=== PATIENT | male | born 1970 | race Caucasian/White ===

== ENCOUNTER 2017-10-01 15:33 | Outpatient (CLI) | payer OTHER ==
--- NOTE | 2017-10-01 17:25 | MRI ---
MRI OF LEFT KNEE PERFORMED WITHOUT CONTRAST ENHANCEMENT: History: Complaining of left knee pain since April. No known history of trauma. FINDINGS: The anterior as well as posterior cruciate ligaments are intact. The medial and lateral menisci are normal in shape and appearance. Medial as well as lateral collateral ligament and iliotibial band regions appear unremarkable. The patellar articular cartilage is intact. There is a new full thickness articular cartilage defect involving the more inferior aspect of the trochlear grove laterally. There is some fairly prominent s ubchondral marrow edema change and some altered signal change directly beneath the subchondral bony p late suggesting an insufficiency type fracture. There is some minimal patellar tendinosis incidentall y noted. IMPRESSION: 1. Moderate marrow edema changes and near full thickness articular cartilage defect measuring 5-6 mm in size involving the more inferior margin of the lateral side of the trochlear grove. Changes in the subchondral bony plate would suggest underlying insufficiency fracture in this region. 2. Minimal patellar tendinosis. POS: OFF
== END 2017-10-01 15:34 | disposition home or self-care (01) ==
LOC: TBSIIMAG 15:33
PROVIDERS: ATTEND Family Medicine
DX: M25.562 Pain in left knee (principal); R60.0 Localized edema; M76.52 Patellar tendinitis, left knee

== ENCOUNTER 2018-08-09 08:19 | Outpatient (CLI) | payer OTHER ==
--- NOTE | 2018-08-09 10:01 | RAD ---
CERVICAL SPINE SERIES WITH FLEXION AND EXTENSION AND OBLIQUE VIEWS A TOTAL OF 7 IMAGES: HISTORY: Chronic pain. FINDINGS: The vertebral bodies are normal in height. There is moderate degenerative disk narrowing at C5-6. T here is also posterior osteophytic change at this level. There is also some mild bilateral foraminal narrowing greater on the right. I do not see any abnormal motion on flexion or extension. IMPRESSION: Moderate degenerative disk narrowing at the C5-6 level. POS: [facility]
== END 2018-08-09 08:20 | disposition home or self-care (01) ==
LOC: BICRAD 08:19
PROVIDERS: ATTEND Family Medicine
DX: M54.2 Cervicalgia (principal); M50.222 Other cervical disc displacement at C5-C6 level; Z12.5 Encounter for screening for malignant neoplasm of prostate; Z00.00 Encounter for general adult medical examination without abnormal findings; M10.9 Gout, unspecified
CPT/HCPCS: 36415; 72052; 80053; 80061; 82306; 84443; 84550; 85025; G0103

== ENCOUNTER 2018-09-11 07:42 | Outpatient (CLI) | payer OTHER ==
--- NOTE | 2018-09-11 10:21 | MRI ---
MRI CERVICAL SPINE WITHOUT CONTRAST: HISTORY: Cervical spine stenosis. COMPARISON: Radiographs from 08/09/2018. FINDINGS: The cerebellar tonsils terminate at the level of the foramen magnum. Cord signal is normal. The paraspinal musculature is normal. No cervical adenopathy. No marrow infiltrative process. Levels are as follows: C2-C3: Normal disk. No neural foramina or spinal canal narrowing. C3-C4: There is central and bilateral paracentral posterior disk protrusion with minimal effacement of the ventral CSF space. There is mild facet arthropathy. No neural foraminal narrowing. No spina l canal narrowing. C4-C5: Low grade uncinate process hypertrophy. No neural foraminal or spinal canal narrowing. Mild facet arthrosis. C5-C6: There is a broad-based posterior disk osteophyte complex. There is complete effacement of th e ventral CSF space, with the spinal canal measuring approximately 8 mm. Mild degenerative disk spac e height loss. Mild facet arthropathy. Moderate bilateral neural foraminal narrowing. Moderate unc inate process hypertrophy. C6-C7: Mild posterior degenerative disk space height loss with broad-based posterior disk osteophyte complex. Mild effacement of the ventral CSF space, with the spinal canal still measuring over a garrett timeter. Mild uncinate process hypertrophy. Mild bilateral neural foraminal narrowing. IMPRESSION: Mild to moderate spondylosis, as described, with complete effacement of the ventral cerebrospinal flu id space at C5-C6, due to a broad-based posterior disk osteophyte complex, with spinal canal narrowin g. POS: [facility]
== END 2018-09-11 07:43 | disposition home or self-care (01) ==
LOC: SCSMRI 07:42
PROVIDERS: ATTEND Orthopaedic Surgery Hand Surgery
DX: M47.22 Other spondylosis with radiculopathy, cervical region (principal); M48.02 Spinal stenosis, cervical region; M25.78 Osteophyte, vertebrae
CPT/HCPCS: 72141

== ENCOUNTER 2018-10-07 12:41 | Outpatient (CLI) | payer OTHER ==
--- NOTE | 2018-10-07 14:33 | RAD ---
CHEST TWO VIEWS: 10/07/2018 HISTORY: Dyspnea. COMPARISON: None. FINDINGS: There is mild diffuse increased linear interstitial density. There is no pneumothorax, pleural fluid , focal consolidation, or alveolar edema. IMPRESSION: Mild interstitial prominence with no focal consolidation or alveolar edema. POS: [facility]
== END 2018-10-07 12:42 | disposition home or self-care (01) ==
LOC: RAD 12:41 → BICRAD 12:42
PROVIDERS: ATTEND Internal Medicine Critical Care Medicine
DX: R06.00 Dyspnea, unspecified (principal)
CPT/HCPCS: 71046

== ENCOUNTER 2025-05-13 14:26 | Outpatient (CLI) | payer OTHER | END 2025-05-13 14:27 | disposition home or self-care (01) | LOC: SCSRAD 14:26 | PROVIDERS: ATTEND Family Medicine | DX: R05.3 Chronic cough (principal) | CPT/HCPCS: 71046 ==